=== PATIENT | male | born 1955 | race Caucasian/White ===

== ENCOUNTER 2020-07-27 08:20 | Day surgery (SDC) | payer MEDICARE ==
[~2020-07-27] VITALS: Ht 162.6 cm; Wt 106.6 kg
[2020-07-27] MEDS ORDERED: LISI5 (09:32)
== END 2020-07-27 13:01 | disposition home or self-care (01) ==
LOC: ORSCSDS 08:20
PROVIDERS: Orthopaedic Surgery
PROC: 0SBD4ZZ Excision of Left Knee Joint, Percutaneous Endoscopic Approach (ICD-10-PCS; principal; 2020-07-27 09:45)
DX: S83.242A Other tear of medial meniscus, current injury, left knee, initial encounter (principal); I10 Essential (primary) hypertension; Z87.891 Personal history of nicotine dependence; E66.01 Morbid (severe) obesity due to excess calories; Z68.41 Body mass index [BMI] 40.0-44.9, adult; Z79.899 Other long term (current) drug therapy
CPT/HCPCS: J0690; J1100; J1885; J2250; J2405; J2704; J3010; J7120

== ENCOUNTER → 2021-05-13 | Outpatient (CLI) | payer MEDICARE ==
[~2021-05-13] MED LIST: LISI5
[2021-05-13 15:25] LABS: CHOL/HDL RATIO 7.1; Cholesterol 254 mg/dL (50-200); HDL Cholesterol 36 mg/dL (>39); LDL/HDL RATIO Unable to Calculate; Low Density Lipoprotein Chol Unable to Calculate mg/dL (0-110); Triglycerides 562 mg/dL (30-160); Very Low Density Lipoprot Chol Unable to Calculate mg/dL (6-32)
== END ==
LOC: LAB SHORT 12:08
PROVIDERS: Family Medicine
DX: Z79.899 Other long term (current) drug therapy (principal)
CPT/HCPCS: 36415; 80061